=== PATIENT | female | born 1945 | race Caucasian/White ===

== ENCOUNTER → 2016-11-22 | Outpatient (CLI) | payer MEDICARE | LOC: HEART CORB 14:00 | DX: I48.0 Paroxysmal atrial fibrillation (principal) | CPT/HCPCS: 93306 ==

== ENCOUNTER → 2021-03-23 | Outpatient (CLI) | payer OTHER ==
[~2021-03-23] MED LIST: BUSPIRONE HCL7.5 MG PO; LEXAPRO TAB 1010 MG PO; LISINOPRIL-HCT1 EAC1 PO; TENORMIN 25 MG25 MG PO; XARELTO20 MG PO; ZOCOR 40 MG TAB40 MG PO
== END ==
LOC: HEART CORB 08:30
DX: I48.0 Paroxysmal atrial fibrillation (principal); I51.7 Cardiomegaly; I50.32 Chronic diastolic (congestive) heart failure
CPT/HCPCS: 93306

== ENCOUNTER → 2021-04-04 | Outpatient (CLI) | payer OTHER | LOC: HEART 5 11:09 | DX: Z20.822 Contact with and (suspected) exposure to COVID-19 (principal) | CPT/HCPCS: 71046; 94060; 94729 ==

== ENCOUNTER → 2021-07-05 | Day surgery (SDC) | payer MEDICARE ==
[~2021-07-05] MED LIST changes: +ARICEPT10 MG PO; +PROCARDIA XL30 MG PO; +PROTONIX 40 MG40 M1 PO
== END | disposition home or self-care (01) ==
LOC: OR 06:12
PROVIDERS: Internal Medicine Gastroenterology
PROC: 0DJ08ZZ Inspection of Upper Intestinal Tract, Via Natural or Artificial Opening Endoscopic (ICD-10-PCS; principal; 2021-07-05 07:30)
PROC: 0DBM8ZX Excision of Descending Colon, Via Natural or Artificial Opening Endoscopic, Diagnostic (ICD-10-PCS; 2021-07-05 07:30)
DX: Z12.11 Encounter for screening for malignant neoplasm of colon (principal); K63.5 Polyp of colon; K63.4 Enteroptosis; K64.1 Second degree hemorrhoids; I48.91 Unspecified atrial fibrillation; I10 Essential (primary) hypertension; E66.9 Obesity, unspecified; Z68.31 Body mass index [BMI] 31.0-31.9, adult; Z79.01 Long term (current) use of anticoagulants; Z20.822 Contact with and (suspected) exposure to COVID-19; Z79.899 Other long term (current) drug therapy; Z88.0 Allergy status to penicillin
CPT/HCPCS: J2704; J7040

== ENCOUNTER → 2021-07-21 | Outpatient (CLI) | payer MEDICARE | LOC: MAMO 07-13 08:00 | DX: Z12.31 Encounter for screening mammogram for malignant neoplasm of breast (principal) | CPT/HCPCS: 77063; 77067 ==

== ENCOUNTER → 2022-03-03 | Outpatient (CLI) | payer MEDICARE | LOC: CT 02-14 13:00 | DX: R91.8 Other nonspecific abnormal finding of lung field (principal) | CPT/HCPCS: 71260; Q9967 ==